=== PATIENT | male | born 1975 | race Caucasian/White ===

== ENCOUNTER 2024-12-04 12:48 | Outpatient (CLI) | payer OTHER, SELFPAY ==
--- NOTE | 2024-12-04 13:00 | CRLHL7_ITS ---
For Patients: As a result of the Century Cures Act, medical imaging exams and procedure reports are released immediately into your electronic medical record. You may view this report before your referring provider. If you have questions, please contact your health care provider. INDICATION: Foot injury COMPARISON: 03/09/2022 right foot radiographs TECHNIQUE: Three radiographic view(s) of the right foot. FINDINGS/IMPRESSION: No evident acute displaced fracture. There is a small amount of medial sided cortical thickening associated with the 2nd and 3rd metatarsal shaft which appears similar since the 03/09/2022 x-ray and could represent old healed fractures and/or old stress changes. No substantial degenerative change in the forefoot. [id number] degenerative change of the tibiotalar joint. Small well corticated ossicle projecting inferior to the medial malleolus and additional small well corticated ossicle projecting inferior to the lateral malleolus likely represent sequela of old trauma. Dictated by Vish Lion MD @ 12/04/2024 1:12:38 PM (Electronically Signed)
== END 2024-12-04 12:49 | disposition home or self-care (01) ==
LOC: RAD 12:50
PROVIDERS: Visit Provider Family Medicine
DX: S99.929A Unspecified injury of unspecified foot, initial encounter (principal)
CPT/HCPCS: 73630

== ENCOUNTER 2025-03-27 19:36 | Outpatient (CLI) | payer OTHER, SELFPAY ==
--- NOTE | 2025-03-27 | CRLHL7_ITS ---
For Patients: As a result of the Century Cures Act, medical imaging exams and procedure reports are released immediately into your electronic medical record. You may view this report before your referring provider. If you have questions, please contact your health care provider. Indication: Post-traumatic 1st MTP, pain Technique: Left foot 3 views Comparison: None Findings: Bones: Alignment is normal. No fractures or bone lesions. Joint spaces: Joint spaces are well maintained. No degenerative changes. Soft tissues: Unremarkable. Impression: No findings to explain pain. Dictated by Cody Pugh MD @ 03/30/2025 10:09:15 AM (Electronically Signed)
== END 2025-03-27 19:37 | disposition home or self-care (01) ==
LOC: NFLDRAD 19:39
PROVIDERS: Visit Provider Family Medicine
DX: M79.675 Pain in left toe(s) (principal)
CPT/HCPCS: 73630